=== PATIENT | female | born 1965 | race Asian ===

== ENCOUNTER 2021-12-30 08:35 | Emergency (ER) | payer BC ==
[~2021-12-30] VITALS: Ht 167.6 cm; Wt 74.8 kg
--- NOTE | 2021-12-30 08:51 | NUR ---
[email or web address], medical screening exam in progress
[2021-12-30] MEDS ORDERED: CEPH500C2 PO (09:09)
[2021-12-30] MEDS ORDERED: PHEN-704 PO (09:09)
[2021-12-30] MEDS ORDERED: PHENAZOPYRIDINE HCL 100 MG TABLET PO ONE (09:15)
[2021-12-30] MEDS ORDERED: CEphaleXIN 500 MG CAPSULE PO ONE (09:15)
--- NOTE | 2021-12-30 09:21 | NUR ---
Pending urine analysis test results still, no acute change in condition seen.
[2021-12-30 09:22] LABS: *BILIRUBIN,URIN NEGATIVE (NEGATIVE); *BLOOD, URINE 3+ (NEGATIVE); *CLARITY,URINE CLEAR (CLEAR); *COLOR,URINE YELLOW (YELLOW); *KETONES,URINE NEGATIVE (NEGATIVE); *UROBILINOGEN,URINE 0.2 E.U./dl (NORMAL); LEUKOCYTE ESTERASE ,URINE 3+ (NEGATIVE); NITRITE, URINE POSITIVE (NEGATIVE); UGLUCOSE NEGATIVE (NEGATIVE)
--- NOTE | 2021-12-30 09:25 | NUR ---
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
[2021-12-30] MEDS ORDERED: PHENAZOPYRIDINE HCL 100 MG TABLET ONE (09:31)
[2021-12-30] MEDS ORDERED: CEphaleXIN 500 MG CAPSULE ONE (09:31)
--- NOTE | 2021-12-30 09:38 | NUR ---
Patient discharged to home in stable condition with brisk steady gait. Written and verbal after care instructions given. Patient verbalized understanding and compliance of instructions. Stressed follow up with primary doctor or return to ER for worsening s/s.
[2021-12-30 12:51] LABS: BACTERIA,URINE FEW /HPF (NONE SEEN); RBC,URINE 20-50 /HPF (0-3); SQUAMOUS EPITHELIAL CELL,UR FEW /HPF (NONE SEEN); WBC,URINE 50-80 /HPF (0-3)
== END 2021-12-30 09:39 | disposition home or self-care (01) ==
LOC: ER 08:35
DX: N39.0 Urinary tract infection, site not specified (principal); E78.5 Hyperlipidemia, unspecified
CPT/HCPCS: 87077; 87086; A4663

== ENCOUNTER 2024-08-24 07:58 | Emergency (ER) | payer BC ==
[~2024-08-24] VITALS: Ht 167.6 cm; Wt 81.2 kg
[~2024-08-24 07:58] MED LIST: CEPH500C2 PO; PHEN-704 PO
[2024-08-24] MEDS ORDERED: DEXAMETHASONE SOD PHOSPHATE 4 MG INJ ONE (08:46)
[2024-08-24] MEDS ORDERED: HYDR-501 PO (08:48)
[2024-08-24] MEDS: DEXAMETHASONE SOD PHOSPHATE 4 MG INJ IM ONE (08:55)
[2024-08-24 09:01] VITALS: BP 145/96; O2SAT 99
== END 2024-08-24 09:02 | disposition home or self-care (01) ==
LOC: ER 07:58
DX: L23.9 Allergic contact dermatitis, unspecified cause (principal); E88.810 Metabolic syndrome; R74.01 Elevation of levels of liver transaminase levels; Z79.899 Other long term (current) drug therapy; Z88.7 Allergy status to serum and vaccine
CPT/HCPCS: 99283; 96372; J1100; A4606; A4663